=== PATIENT | male | born 1950 | race Caucasian/White ===

== ENCOUNTER → 2020-01-05 | Outpatient (CLI) | payer MEDICAID, MEDICARE ==
[2015-11-01 10:54] VITALS: BP 117/72
[~2020-01-05] MED LIST: ALBU2.5V8 IH; AMLO5TAB10 PO; ASPI-424 PO; ATOR40TA59 PO; CONTRAST GIVEN. MC PRN; GABA300C18 PO; HYDR2TAB31 IV; IOHEXOL 240 MG/ML 50ML VIAL. PO ONE; IOHEXOL 300 MG/ML 100ML VIAL. IV ONE; LEVE500T6 PO; LISI-130 PO; OXYC5TAB4 PO; POLY17PO29 PO
--- NOTE | 2020-01-05 12:37 | RAD ---
CT ABD PELV W/ORAL IV CONTRAST Indication: Umbilical hernia without obstruction, abdominal pain Technique: Postcontrast CT imaging was performed of the abdomen pelvis, multiplanar reconstruction images submitted. Oral contrast was also given. One or more of the following individualized dose reduction techniques were utilized for this examination: 1. Automated exposure control 2. Adjustment of the mA and/or kV according to patient size 3. Use of iterative reconstruction technique. Comparison: October 31, 2015 Findings: There is mild lingular infiltrate or atelectasis, not fully included. There is again dilated and tortuous descending thoracic aorta, visualized segment about 5 cm AP caliber which is probably larger although not fully evaluated. The abdominal aorta near the celiac artery origin measures about 5.5 cm transverse by 4.9 cm AP versus previously about 5 cm transverse by 4.3 cm AP. Abdominal aorta near the superior mesenteric artery origin measures about 4.9 cm transverse by 4.6 cm AP versus previously 3.9 cm transverse by 3.9 cm AP. Abdominal aortic caliber near the renal artery origins measures about 3.8 cm AP by 4.1 cm transverse versus previously about 3.1 cm AP by 3.6 cm transverse. Maximal caliber of the infrarenal abdominal aorta is about 3.7 cm just below the renal artery origins, previously about 3.4 cm. Right common iliac artery measures about 2.3 cm, previously about 2 cm. Left abdomen iliac artery measures about 1.6 cm, fairly similar. There is again scattered calcified and noncalcified plaque of the aorta. Both kidneys enhance, no hydronephrosis. There is again strandy change of the perinephric fat bilaterally. Gallbladder is present without obvious intraluminal by CT. No new focal abnormality is identified of the liver, pancreas, or spleen. There are splenic granulomas. Bowel is not significantly dilated. There is no free fluid or free air. There is a small fat-containing umbilical hernia, hernia neck about 1 cm in transverse dimension and hernia sac about 2 cm transverse, no internal bowel. There is again fairly severe diverticulosis of the sigmoid and descending colon. There is mild hazy density of the pericolonic fat near the junction of sigmoid and descending colon, no defined fluid collection. Normal appendix is visualized. There is again mild distention of the urinary bladder. There are some prostate calcifications. There is again fat in the left inguinal canal, no bowel. There is degenerative disc disease greatest at L5-S1. IMPRESSION: 1. There is again colonic diverticulosis greatest of the sigmoid and descending colon, mild hazy and strandy change about the junction of the descending and sigmoid colon which could be due to mild diverticulitis. 2. There is small fat-containing umbilical hernia, no internal bowel. There is also fat in the left inguinal canal without internal bowel. 3. There is increased aneurysmal dilatation of the abdominal aorta and visualized descending thoracic aorta as stated. Electronically signed by: Italo Ruiz MD (01/05/2020 12:34 PM) [id number]
== END | disposition home or self-care (01) ==
LOC: CT 08:50
PROVIDERS: ATTEND Family Medicine
DX: K42.9 Umbilical hernia without obstruction or gangrene (principal); K57.30 Diverticulosis of large intestine without perforation or abscess without bleeding; I71.4 Abdominal aortic aneurysm, without rupture; I70.0 Atherosclerosis of aorta; M51.37 Other intervertebral disc degeneration, lumbosacral region; N32.89 Other specified disorders of bladder
CPT/HCPCS: 74177; Q9966; Q9967